=== PATIENT | female | born 1965 | race Caucasian/White ===

== ENCOUNTER 2017-05-07 17:47 | Emergency (ER) | payer OTHER ==
[2017-05-07 17:53] VITALS: BP 111/64; PULSE 91; TEMP 98.2; BMI 23.0
[2017-05-07 18:27] LABS: URINE APPEARANCE CLOUDY; URINE BILIRUBIN NEGATIVE (NEGATIVE); URINE COLOR LTYELLOW; URINE GLUCOSE (UA) NEGATIVE (NEGATIVE); URINE KETONE NEGATIVE (NEGATIVE); URINE NITRITE NEGATIVE (NEGATIVE); URINE UROBILINOGEN NEGATIVE E.U./dl (0.2-1.0)
[2017-05-07 18:28] LABS: URINE BLOOD 3+ (NEGATIVE); URINE LEUK ESTERASE 3+ (NEGATIVE); URINE PROTEIN 1+ (NEGATIVE)
[2017-05-07 18:32] LABS: URINE RBC 65 /hpf (0-3); URINE WBC 510 /hpf (3-5)
--- NOTE | 2017-05-07 18:38 | PDOC ---
History of Present Illness - General Chief Complaint: Urinary Problem Stated Complaint: UTI Time Seen by Provider: 05/07/17 18:34 History Source: Patient, Family Exam Limitations: No Limitations - History of Present Illness Travel History: No Initial Comments: 05/07/17 19:00 52 yr female with c/o painful urination and urgency for 3 days. no fever no chills or vomiting. Past History - Past Medical History Allergies/Adverse Reactions: Allergies Allergy/AdvReac Type Severity Reaction Status Date / Time aspirin Allergy Rash Verified 05/07/17 17:50 Home Medications: Ambulatory Orders Albuterol Sulfate Inhaler - [Ventolin HFA Inhaler -] 2 inh IH HS 03/27/13 Levothyroxine [Synthroid -] 50 mcg PO DAILY 03/27/13 Amoxicillin - [Amoxicillin 500mg Capsule -] 1,000 mg PO TID #60 capsule Naproxen [EC-Naprosyn] 500 mg PO BID #20 tablet.ec 02/14/15 Cyclobenzaprine HCl [Flexeril 10 mg] 5 mg PO BID PRN #14 tablet 01/07/17 Naproxen [Naprosyn -] 500 mg PO BID #20 tablet 01/07/17 Cephalexin [Keflex] 500 mg PO BID #10 capsule 05/07/17 Phenazopyridine HCl [Pyridium] 200 mg PO TID PRN #6 tablet 05/07/17 Asthma: Yes Suicide Attempt (Hx): No Thyroid Disease: Yes - Psycho/Social/Smoking Cessation Hx Anxiety: No Suicidal Ideation: No Smoking Status: No Smoking History: Never smoked Have you smoked in the past 12 months: No Number of Cigarettes Smoked Daily: 0 Information on smoking cessation initiated: No Hx Alcohol Use: No Drug/Substance Use Hx: No Substance Use Type: None Abd/GI Specific PMHX - Complaint Specific PMHX Colitis: No Diverticulitis: No Gall Bladder Disease: No GERD: No Hepatitis: No Irritable Bowel Synd (IBS): No Pancreatitis: No GI Ulcer Disease: No Review of Systems - Review of Systems Able to Perform ROS?: Yes Is the patient limited Ivorian proficient: No Constitutional: No: Symptoms Reported HEENTM: No: Symptoms Reported Respiratory: No: Symptoms reported Cardiac (ROS): No: Symptoms Reported ABD/GI: No: Symptoms Reported : Yes: Symptoms Reported, See HPI *Physical Exam - Vital Signs Last Vital Signs Temp Pulse Resp BP Pulse Ox 98.2 F 91 H 18 111/64 100 05/07/17 17:50 05/07/17 17:50 05/07/17 17:50 05/07/17 17:50 05/07/17 17:50 - Physical Exam General Appearance: Yes: Nourished, Appropriately Dressed HEENT: positive: EOMI, ZINA Respiratory/Chest: positive: Lungs Clear, Normal Breath Sounds Cardiovascular: positive: Regular Rhythm, Regular Rate Gastrointestinal/Abdominal: positive: Normal Bowel Sounds, Tender (suprapubic ) , Soft. negative: Distended, Guarding Musculoskeletal: positive: Normal Inspection Extremity: positive: Normal Inspection, Normal Range of Motion Integumentary: positive: Normal Color, Dry, Warm Neurologic: positive: biztalk software developer II-XII NML intact, Fully Oriented ED Treatment Course - ADDITIONAL ORDERS Additional order review: Laboratory Results 05/07/17 18:00 Urine Color Ltyellow Urine Appearance Cloudy Urine pH 5.0 Urine Protein 1+ H Urine Glucose (UA) Negative Urine Ketones Negative Urine Blood 3+ H Urine Nitrite Negative Urine Bilirubin Negative Urine Urobilinogen Negative Ur Leukocyte Esterase 3+ H Urine RBC 65 Urine WBC 510 Medical Decision Making - Medical Decision Making 05/07/17 19:01 cc: painful urination with urgency and lower abd pain, suprapubic discomfort neg fever or chills no vomiting will r/o UTI denies vaginal symptoms has had UTI in the past feels the same *DC/Admit/Observation/Transfer Diagnosis at time of Disposition: Urinary tract infection Qualifiers: Urinary tract infection type: acute cystitis Hematuria presence: with hematuria Qualified Code(s): N30.01 - Acute cystitis with hematuria - Discharge Dispostion Disposition: HOME Condition at time of disposition: Good - Prescriptions Prescriptions: Cephalexin [Keflex] 500 mg PO BID #10 capsule Phenazopyridine HCl [Pyridium] 200 mg PO TID PRN #6 tablet PRN Reason: Pain - Referrals Referrals: Francia Ochoa [Primary Care Provider] - - Patient Instructions Additional Instructions: drink pleanty of fluids to stay well hydrated take the keflex as directed for 5 days and pyridium for pain as needed follow with your doctor next week for follow up Return to ER for fever, vomiting, any worsening symptoms
== END 2017-05-07 19:55 | disposition home or self-care (01) ==
LOC: JERFT 17:47
DX: N30.01 Acute cystitis with hematuria (principal); E03.9 Hypothyroidism, unspecified; J45.909 Unspecified asthma, uncomplicated
CPT/HCPCS: 81003; 81015; 87086; 87186; 99281-25

== ENCOUNTER 2019-08-29 21:30 | Emergency (ER) | payer OTHER ==
[2019-08-29 21:35] VITALS: BP 122/60; PULSE 65; TEMP 98.2; BMI 21.9
--- NOTE | 2019-08-29 21:49 | PDOC ---
History of Present Illness - General Chief Complaint: Allergic Reaction Stated Complaint: ITCHINESS Time Seen by Provider: 08/29/19 21:39 History Source: Patient - History of Present Illness Timing/Duration: other Past History - Past Medical History Allergies/Adverse Reactions: Allergies Allergy/AdvReac Type Severity Reaction Status Date / Time aspirin Allergy Rash Verified 05/07/17 17:50 Home Medications: Ambulatory Orders Albuterol Sulfate Inhaler - [Ventolin HFA Inhaler -] 2 inh IH HS 03/27/13 Levothyroxine [Synthroid -] 50 mcg PO DAILY 03/27/13 Amoxicillin - [Amoxicillin 500mg Capsule -] 1,000 mg PO TID #60 capsule Naproxen [EC-Naprosyn] 500 mg PO BID #20 tablet.ec 02/14/15 Cyclobenzaprine HCl [Flexeril 10 mg] 5 mg PO BID PRN #14 tablet 01/07/17 Naproxen [Naprosyn -] 500 mg PO BID #20 tablet 01/07/17 Cephalexin [Keflex] 500 mg PO BID #10 capsule 05/07/17 Phenazopyridine HCl [Pyridium] 200 mg PO TID PRN #6 tablet 05/07/17 Loratadine [Claritin] 10 mg PO DAILY #7 tablet 08/29/19 Asthma: Yes COPD: No Thyroid Disease: Yes - Psycho Social/Smoking Cessation Hx Smoking Status: No Smoking History: Never smoked Have you smoked in the past 12 months: No Number of Cigarettes Smoked Daily: 0 Hx Alcohol Use: No Drug/Substance Use Hx: No Substance Use Type: None Review of Systems - Review of Systems Constitutional: No: Chills, Fever HEENTM: Yes: Nose Congestion Respiratory: No: Cough, Shortness of Breath, Stridor, Wheezing Integumentary: Yes: Pruritus. No: Rash *Physical Exam - Vital Signs Last Vital Signs Temp Pulse Resp BP Pulse Ox 98.2 F 65 19 122/60 100 08/29/19 21:32 08/29/19 21:32 08/29/19 21:32 08/29/19 21:32 08/29/19 21:32 - Physical Exam General Appearance: Yes: Appropriately Dressed. No: Apparent Distress HEENT: positive: Normal ENT Inspection, Normal Voice, TMs Normal, Pharynx Normal , Other (no tongue/lip swelling). negative: Scleral Icterus (R), Scleral Icterus (L), Sinus Tenderness Neck: positive: Supple. negative: Stridor Respiratory/Chest: negative: Respiratory Distress Integumentary: positive: Dry, Warm. negative: Rash Neurologic: positive: Fully Oriented, Alert, Normal Mood/Affect Medical Decision Making - Medical Decision Making 08/29/19 21:46 54-year-old female, no significant history, started Cefdinir for "sinus infectio " 5 days ago and states 1 to 2 days into taking meds developed generalized pruritus, no rash shortness of breath lip or tongue swelling. Patient states she has not never taken meds in the past but reports only known allergy to asa. Was started on meds for facial pain with green rhinorrhea. Denies headache dental pain or fever. Pt is well-appearing and stable with no rash on exam. Told to stop taking meds and discuss further with her PMD on Sunday. In the meantime to take Claritin as directed and return to ER as needed Discharge - Discharge Information Problems reviewed: Yes Clinical Impression/Diagnosis: Genital pruritus Condition: Good Disposition: HOME - Additional Discharge Information Prescriptions: Loratadine [Claritin] 10 mg PO DAILY #7 tablet - Follow up/Referral - Patient Discharge Instructions Patient Printed Discharge Instructions: DI for Adverse Drug Reaction -- Allergic Additional Instructions: It is unclear if current antibiotics is causing your itching. Please stop taking meds and discuss with your PMD on Sunday. Take Claritin as directed and if symptoms worsen return to the ER Print Language: MALDIVIAN - Post Discharge Activity
== END 2019-08-29 22:13 | disposition home or self-care (01) ==
LOC: JERFT 21:30
DX: L29.8 Other pruritus (principal); J32.9 Chronic sinusitis, unspecified; Z88.6 Allergy status to analgesic agent
CPT/HCPCS: 99282-25

== ENCOUNTER 2021-08-06 14:09 | Emergency (ER) | payer OTHER ==
[2021-08-06 14:26] VITALS: BP 152/89; PULSE 72; TEMP 97.9; BMI 20.1
[2021-08-06] MEDS ORDERED: METOCLOPRAMIDE HCL INJECTION 10 MG/2 ML VIAL IVPB STA (15:49)
[2021-08-06] MEDS ORDERED: SODIUM CHLORIDE 1,000 ML IV ONE (15:49)
[2021-08-06] MEDS ORDERED: ACETAMINOPHEN 1000 MG/100 ML VIAL (NON FORMULARY) IVPB ONE (15:51)
[2021-08-06] MEDS ORDERED: METOCLOPRAMIDE HCL INJECTION 10 MG/2 ML VIAL ONE (16:07)
[2021-08-06] MEDS ORDERED: ACETAMINOPHEN INJECTION 100 ML IVPB ONE (16:07)
[2021-08-06 16:09] LABS: BASO % 0.6 % (0-2.0); EOS % 0.4 % (0-4.5); HEMATOCRIT 35.3 % (32.4-45.2); HEMOGLOBIN 11.6 GM/dL (10.7-15.3); LYMPH % 32.4 % (8-40); MCH 26.4 pg (25.7-33.7); MCHC 32.9 g/dl (32.0-36.0); MEAN CELL VOLUME 80.2 fl (80-96); MEAN PLT VOLUME 8.3 fl (7.5-11.1); MONO % 7.6 % (3.8-10.2); PLATELET COUNT 221 10^3/uL (134-434); RDW 15.8 % (11.6-15.6)
[2021-08-06 16:25] LABS: CALCIUM 9.2 mg/dL (8.5-10.1)
[2021-08-06 16:26] LABS: ALBUMIN 4.2 g/dl (3.4-5.0); BLOOD UREA NITROGEN 10.1 mg/dL (7-18)
[2021-08-06 16:29] LABS: CREATININE 0.6 mg/dL (0.55-1.3)
[2021-08-06 16:30] LABS: BILIRUBIN,TOTAL 0.4 mg/dL (0.2-1)
[2021-08-06 16:31] LABS: TOT PROT 8.2 g/dl (6.4-8.2)
== END 2021-08-06 20:17 | disposition left against medical advice (07) ==
LOC: JER 14:09
PROC: 3E0333Z Introduction of Anti-inflammatory into Peripheral Vein, Percutaneous Approach (ICD-10-PCS; principal; 2021-08-06)
PROC: 3E033GC Introduction of Other Therapeutic Substance into Peripheral Vein, Percutaneous Approach (ICD-10-PCS; 2021-08-06)
PROC: 3E0337Z Introduction of Electrolytic and Water Balance Substance into Peripheral Vein, Percutaneous Approach (ICD-10-PCS; 2021-08-06)
DX: G44.001 Cluster headache syndrome, unspecified, intractable (principal)
CPT/HCPCS: 36415; 70450-TC; 80053; 85025; 99284-25; J0131

== ENCOUNTER 2021-09-27 15:58 | Emergency (ER) | payer OTHER ==
[2021-09-27 16:11] VITALS: BP 119/75; PULSE 75; TEMP 97.8; BMI 20.5
[2021-09-27] MEDS ORDERED: ACETAMINOPHEN 500 MG TABLET (FP) PO ONE (16:49)
[2021-09-27] MEDS ORDERED: ACETAMINOPHEN 500 MG TABLET (FP) ONE (17:27)
[2021-09-27 18:40] LABS: URINE APPEARANCE CLEAR; URINE BILIRUBIN NEGATIVE (NEGATIVE); URINE COLOR YELLOW; URINE GLUCOSE (UA) NEGATIVE (NEGATIVE); URINE KETONE NEGATIVE (NEGATIVE); URINE LEUK ESTERASE 2+ (NEGATIVE); URINE NITRITE NEGATIVE (NEGATIVE); URINE PROTEIN NEGATIVE (NEGATIVE); URINE UROBILINOGEN 0.2 mg/dL (0.2-1.0)
[2021-09-27 18:57] LABS: EPI CELLS 3.4 /uL (0-25.1); URINE BACTERIA 1196.9 /uL (0-1359); URINE RBC 1.7 /uL (0-23.9); URINE WBC 118.7 /uL (0-25.8)
== END 2021-09-27 19:00 | disposition home or self-care (01) ==
LOC: JERFT 15:58
DX: H57.11 Ocular pain, right eye (principal); N30.00 Acute cystitis without hematuria; B30.9 Viral conjunctivitis, unspecified
CPT/HCPCS: 81003; 87086; 99283-25

== ENCOUNTER 2023-07-13 07:05 | Day surgery (SDC) | payer OTHER ==
[2023-07-11 16:40] VITALS: BMI 21.7
[2023-07-13] MEDS ORDERED: LIDOCAINE HCL/PF 2% SDV 5ML VIAL ONE (07:16)
[2023-07-13] MEDS ORDERED: MIDAZOLAM HCL 2 MG/2 ML SINGLE DOSE VIAL ONE (07:16)
[2023-07-13] MEDS ORDERED: PROPOFOL 20 ML ONE (07:16)
[2023-07-13] MEDS ORDERED: BUPIVACAINE HCL/PF 2.5 MG/ML - 30 ML VIAL IJ ONE ×2 (07:26→08:47)
[2023-07-13] MEDS ORDERED: EPINEPHrine 1:1,000 1,000 MCG/ML ML ONE ×2 (07:26→07:33)
[2023-07-13] MEDS ORDERED: BUPIVACAINE HCL/PF 0.25% (2.5MG/ML) 10 ML VIAL ONE (07:33)
[2023-07-13] MEDS ORDERED: BUPIVACAINE HCL/PF 0.5% (5MG/ML) 10 ML VIAL ONE (07:33)
[2023-07-13] MEDS ORDERED: KETOROLAC TROMETHAMINE 30 MG/1 ML VIAL ONE (08:48)
[2023-07-13] MEDS ORDERED: ONDANSETRON 4 MG/2 ML VIAL ONE ×2 (08:48→09:58)
[2023-07-13] MEDS ORDERED: oxyCODONE HCL 5 MG TABLET PO PRN ×2 (09:04)
[2023-07-13] MEDS ORDERED: ONDANSETRON 4 MG/2 ML VIAL IVPUSH PRN (09:04)
[2023-07-13] MEDS ORDERED: PROMETHAZINE HCL 25 MG/1 ML VIAL IVPB PRN (09:04)
[2023-07-13] MEDS ORDERED: ACETAMINOPHEN 1000 MG/100 ML BAG IVPB ONE (09:06)
[2023-07-13] MEDS ORDERED: LACTATED RINGERS SOLUTION 1,000 ML IV SCH (09:15)
[2023-07-13] MEDS ORDERED: FENTANYL CITRATE/PF 50 MCG/ML VIAL ONE ×2 (09:20→09:58)
[2023-07-13] MEDS ORDERED: oxyCODONE HCL 5 MG TABLET ONE (10:21)
[2023-07-13] MEDS ORDERED: oxyCODONE HCL 5 MG TABLET PO ONE (10:25)
[2023-07-13 10:29] VITALS: RESP 16; TEMP 96.7
[2023-07-13 11:00] VITALS: BP 115/50; PULSE 86
== END 2023-07-13 11:39 | disposition home or self-care (01) ==
LOC: FASU 07:05
PROVIDERS: ATTEND Orthopaedic Surgery Sports Medicine
PROC: 0SBC4ZZ Excision of Right Knee Joint, Percutaneous Endoscopic Approach (ICD-10-PCS; principal; 2023-07-13 08:29)
DX: S83.241A Other tear of medial meniscus, current injury, right knee, initial encounter (principal); M65.9 Synovitis and tenosynovitis, unspecified; M23.361 Other meniscus derangements, other lateral meniscus, right knee; X58.XXXA Exposure to other specified factors, initial encounter; Y93.9 Activity, unspecified; Y92.9 Unspecified place or not applicable
CPT/HCPCS: 94760

== ENCOUNTER 2023-12-28 06:09 | Day surgery (SDC) | payer OTHER ==
[2023-12-19 11:43] VITALS: BMI 23.0
[2023-12-28] MEDS ORDERED: PROPOFOL 20 ML ONE (07:08)
[2023-12-28] MEDS ORDERED: SUCCINYLCHOLINE CHLORIDE 200 MG/10 ML SYRINGE ONE (07:08)
[2023-12-28] MEDS ORDERED: MIDAZOLAM HCL 2 MG/2 ML SINGLE DOSE VIAL ONE (07:09)
[2023-12-28] MEDS ORDERED: BUPIVACAINE HCL/PF 0.25% (2.5MG/ML) 10 ML VIAL ONE (07:17)
[2023-12-28] MEDS ORDERED: ACETAMINOPHEN INJECTION 100 ML IVPB ONE (07:30)
[2023-12-28] MEDS ORDERED: SEVOFLURANE 250 ML BTL ONE (08:14)
[2023-12-28] MEDS: BUPIVACAINE HCL/PF 0.25% (2.5MG/ML) 10 ML VIAL IJ ONE (08:43)
[2023-12-28] MEDS ORDERED: FENTANYL CITRATE/PF 50 MCG/ML VIAL ONE (09:32)
[2023-12-28] MEDS ORDERED: oxyCODONE HCL 5 MG TABLET PO PRN (10:10)
[2023-12-28] MEDS ORDERED: oxyCODONE HCL 5 MG TABLET ONE (10:19)
[2023-12-28 10:26] VITALS: PULSE 85; RESP 16; TEMP 96.8
[2023-12-28 11:29] VITALS: BP 116/74
== END 2023-12-28 12:01 | disposition home or self-care (01) ==
LOC: FASU 06:09
PROVIDERS: ATTEND Orthopaedic Surgery Sports Medicine
PROC: 0SBC0ZZ Excision of Right Knee Joint, Open Approach (ICD-10-PCS; 2023-12-28)
PROC: 0SBC4ZZ Excision of Right Knee Joint, Percutaneous Endoscopic Approach (ICD-10-PCS; principal; 2023-12-28 08:05)
DX: S83.241A Other tear of medial meniscus, current injury, right knee, initial encounter (principal); M65.861 Other synovitis and tenosynovitis, right lower leg; X58.XXXA Exposure to other specified factors, initial encounter; Y92.9 Unspecified place or not applicable; Y93.9 Activity, unspecified
CPT/HCPCS: 94760; J0131